=== PATIENT | male | born 1945 | race Caucasian/White ===

== ENCOUNTER → 2017-09-07 | Outpatient (CLI) | payer MEDICARE, BC ==
--- NOTE | 2017-09-07 10:08 | RADIOLOGY REPORT (SQ) ---
EXAM DESCRIPTION: CHEST PA/LATERAL COMPLETED DATE/TIME: 09/07/2017 9:27 am REASON FOR STUDY: ESSENTIAL (PRIMARY) HYPERTENSION COMPARISON: Two-view chest 07/18/2013 EXAM PARAMETERS: NUMBER OF VIEWS: two views TECHNIQUE: Digital Frontal and Lateral radiographic views of the chest acquired. RADIATION DOSE: NA LIMITATIONS: none FINDINGS: LUNGS AND PLEURA: No opacities, masses or pneumothorax. No pleural effusion. MEDIASTINUM AND HILAR STRUCTURES: No masses or contour abnormalities. HEART AND VASCULAR STRUCTURES: Heart normal size. No evidence for failure. BONES: No acute findings. HARDWARE: Since the prior study from 2013, patient has had distal thoracic spine neurostimulator elec trodes placed. Lower cervical fusion hardware. OTHER: No other significant finding. IMPRESSION: NO SIGNIFICANT RADIOGRAPHIC FINDING IN THE CHEST. TECHNICAL DOCUMENTATION: JOB ID: [id number] [employer]- All Rights Reserved Reading location - IP/workstation name: [email or web address]
[2017-09-07 10:09] LABS: HEMATOCRIT 36.4 % (37.9-51.0); HEMOGLOBIN 12.5 g/dL (13.5-17.0); MEAN CORPUSCULAR HEMOGLOBIN 28.5 pg (27.0-33.4); MEAN CORPUSCULAR HGB CONC 34.5 g/dL (32.0-36.0); MEAN CORPUSCULAR VOLUME 83 fl (80-97); PLATELET COUNT 234 10^3/uL (150-450); RED CELL DISTRIBUTION WIDTH 14.8 % (11.5-14.0); WHITE BLOOD COUNT 4.6 10^3/uL (4.0-10.5)
[2017-09-07 10:30] LABS: ANION GAP 9 (5-19); BLOOD UREA NITROGEN 18 mg/dL (7-20); CALCIUM 9.6 mg/dL (8.4-10.2); CARBON DIOXIDE 31 mmol/L (22-30); CHLORIDE 103 mmol/L (98-107); GLUCOSE 115 mg/dL (75-110); POTASSIUM 4.3 mmol/L (3.6-5.0); SODIUM 143.1 mmol/L (137-145)
--- NOTE | 2017-09-07 23:31 | EKG REPORT ---
SEVERITY:- NORMAL ECG - SINUS RHYTHM : Confirmed by: Shaylee Sadler 07-Sep-2017 23:30:44
== END ==
LOC: OD 08:55
PROVIDERS: ATTEND Orthopaedic Surgery
DX: I10 Essential (primary) hypertension (principal); M51.16 Intervertebral disc disorders with radiculopathy, lumbar region
CPT/HCPCS: 36415; 71046; 80048; 85027; 87070; 93005; 93010

== ENCOUNTER → 2017-10-19 | Outpatient (CLI) | payer MEDICARE, BC | LOC: LAB 13:05 | PROVIDERS: ATTEND Physician Assistant Medical | DX: T81.4XXD Infection following a procedure, subsequent encounter (principal) | CPT/HCPCS: 87040 ==

== ENCOUNTER 2017-11-09 08:06 | Day surgery (SDC) | payer MEDICARE, BC ==
[2017-11-09 08:53] LABS: PROTHROMBIN TIME 12.6 SEC (11.4-15.4)
[2017-11-09 08:54] LABS: PARTIAL THROMBOPLASTIN TIME 35.1 SEC (23.5-35.8)
[2017-11-09] MEDS ORDERED: LIDOCAINE 1% INJ-PF (10 MG/ML) 30 ML SDV ONE (09:22)
--- NOTE | 2017-11-09 11:13 | RADIOLOGY REPORT (SQ) ---
EXAM DESCRIPTION: MYELOGRAM LUMBAR COMPLETED DATE/TIME: 11/09/2017 10:32 am REASON FOR STUDY: INTERVERTEBRAL DISC DISORDERS W/ RADICULOPATHY, LUMBAR REGION M51.16 INTERVERTEBR AL DISC DISORDERS W RADICULOPATHY, LUMBAR Z79.01 [employer] (CURRENT) USE OF ANTICOAGULANTS COMPARISON: None. FLUOROSCOPY TIME: 1.09 minute. 18 images saved to PACS. TECHNIQUE: Fluoroscopic guided lumbar myelogram. LIMITATIONS: None. PROCEDURE: After written consent and assessment were obtained, the patient was brought into the fluo roscopy room and placed prone on the table. The patient's lower back was prepped in a sterile fashio n and an entry site was selected under live fluoroscopic guidance. The entry site was anesthetized wi th 1% lidocaine. The spinal needle was advanced through the skin and into the thecal sac at the leve l of L2-L3. Contrast was injected into the thecal sac. Following the procedure the needle was remov ed and a sterile bandage was placed of the site. CONTRAST: 12 mL Isovue 200. IMAGES ACQUIRED: 18 images. FINDINGS: Contrast is present in the thecal sac. There is S-shaped scoliosis. There is multilevel degenerative disc disease with disc space narrowing and osteophytes. On the lateral images there is no abnormal motion with flexion or extension. IMPRESSION: LUMBAR MYELOGRAM PERFORMED FOR CT MYELOGRAPHY. PLEASE REFER TO THE REPORT OF THE CT MYE LOGRAM FOR DETAILED DIAGNOSTIC EVALUATION. COMMENT: Patient medication list reviewed: Yes- Quality ID# [id number]:Eligible professional attests to doc umenting in the medical record they obtained, updated, or reviewed the patient's current medications. . Quality ID 145: Final reports for procedures using fluoroscopy that document radiation exposure sarah dary, or exposure time and number of fluorographic images (if radiation exposure indices are not avail able) TECHNICAL DOCUMENTATION: JOB ID: [id number] [employer]- All Rights Reserved Reading location - IP/workstation name: [email or web address]
--- NOTE | 2017-11-09 11:21 | RADIOLOGY REPORT (SQ) ---
EXAM DESCRIPTION: CT LUMBAR SPINE WITH COMPLETED DATE/TIME: 11/09/2017 10:42 am REASON FOR STUDY: INTERVERTEBRAL DISC DISORDERS W/ RADICULOPATHY, LUMBAR REGION M51.16 INTERVERTEBR AL DISC DISORDERS W RADICULOPATHY, LUMBAR Z79.01 HALF-WAY (CURRENT) USE OF ANTICOAGULANTS COMPARISON: None. TECHNIQUE: After performing lumbar myelogram, axial images were acquired through the lumbar spine wi thout intravenous contrast. Images reviewed with lung, soft tissue and bone windows. Reconstructed coronal and sagittal MPR images reviewed. All images stored on PACS. All CT scanners at this facility use dose modulation, iterative reconstruction, and/or weight based d osing when appropriate to reduce radiation dose to as low as reasonably achievable (ALARA). [facility]: Dose Right [facility]: CareDose [facility]: Dose Right [facility]: Teradose 4D [facility]: Smart [employer] RADIATION DOSE: CT Rad equipment meets quality standard of care and radiation dose reduction techniq ues were employed. CTDIvol: 15.7 mGy. DLP: 442 mGy-cm. mGy. LIMITATIONS: None. FINDINGS: SEGMENTATION: Normal. No transitional anatomy. ALIGNMENT: S-shaped scoliosis. VERTEBRAL BODIES: No fractures. No dislocation. No acute findings. HARDWARE: Spinal stimulator electrodes. DISCS: Multilevel disc space narrowing with endplate sclerosis, vacuum change, and osteophytes. L1-L2: Mild diffuse posterior annular disc bulge. No focal protrusions. No significant stenosis. L2-L3: Diffuse posterior disc bulge with osteophytes. No focal protrusions. No significant stenosis . L3-L4: Diffuse posterior disc bulge with osteophytes. No focal protrusions. Bilateral facet arthrop athy. Ligamentum flavum thickening. Mild spinal stenosis. L4-L5: Diffuse posterior disc bulge with osteophytes. No focal protrusions. Facet arthropathy with ligamentum flavum thickening. Moderate to severe spinal stenosis. On axial image 64 there is impres nuris upon the posterior right side of the thecal sac. This is at the level of the facet joint and co uld be due to focal thickening of the ligamentum flavum or a ganglion cyst arising from the facet. L5-S1: No significant protrusions. Mild facet arthropathy. No significant stenosis. PEDICLES, TRANSVERSE PROCESSES: No fractures. No dislocation. No acute findings. FACETS, POSTERIOR ELEMENTS: Multilevel facet arthropathy. No fractures. No dislocation. No spinal stenosis. VISUALIZED RIBS: No fractures. SOFT TISSUES: No significant or acute finding in adjacent soft tissues. OTHER: No other significant finding. IMPRESSION: S-SHAPED SCOLIOSIS. MULTILEVEL DEGENERATIVE DISC DISEASE AND FACET ARTHROPATHY DESCR IBED ABOVE. FINDINGS ARE MOST PRONOUNCED AT L4-L5 WITH SPINAL STENOSIS. IMPRESSION ON THE POSTERIOR RIGHT SIDE OF THE THECAL SAC MAY BE DUE TO FOCAL THICKENING OF THE LIGAMENTUM FLAVUM OR POSSIBLY A G ANGLION CYST ARISING FROM THE RIGHT FACET JOINT. COMMENT: Patient medication list reviewed: Yes- Quality ID# [id number]:Eligible professional attests to doc umenting in the medical record they obtained, updated, or reviewed the patient's current medications. TECHNICAL DOCUMENTATION: JOB ID: [id number] Quality ID # 436: Final reports with documentation of one or more dose reduction techniques (e.g., Au tomated exposure control, adjustment of the mA and/or kV according to patient size, use of iterative reconstruction technique) 2010 [employer]- All Rights Reserved Reading location - IP/workstation name: [email or web address]
[2017-11-09 12:37] VITALS: BP 160/95
== END 2017-11-09 12:30 | disposition home or self-care (01) ==
LOC: RAD 08:06
PROVIDERS: ATTEND Orthopaedic Surgery
DX: M51.16 Intervertebral disc disorders with radiculopathy, lumbar region (principal); M51.36 Other intervertebral disc degeneration, lumbar region; M54.5 Low back pain; M48.061 Spinal stenosis, lumbar region without neurogenic claudication; E78.00 Pure hypercholesterolemia, unspecified; I10 Essential (primary) hypertension; K58.9 Irritable bowel syndrome, unspecified; Z79.1 Long term (current) use of non-steroidal anti-inflammatories (NSAID); Z79.899 Other long term (current) drug therapy; Z85.46 Personal history of malignant neoplasm of prostate; Z86.14 Personal history of Methicillin resistant Staphylococcus aureus infection; Z79.01 Long term (current) use of anticoagulants
CPT/HCPCS: 36415; 85610; 85730; 72265; 72132; J3490

== ENCOUNTER → 2018-02-22 | Day surgery (SDC) | payer MEDICARE, BC ==
[2018-02-22 08:48] VITALS: BP 98/57
[2018-02-22 09:03] LABS: INTERNATIONAL RATION (INR) 0.93; PROTHROMBIN TIME 12.9 SEC (11.4-15.4)
[2018-02-22 09:04] LABS: PARTIAL THROMBOPLASTIN TIME 33.5 SEC (23.5-35.8)
== END ==
LOC: RAD 08:24
PROVIDERS: ATTEND Neurological Surgery
DX: M47.12 Other spondylosis with myelopathy, cervical region (principal); Z53.9 Procedure and treatment not carried out, unspecified reason
CPT/HCPCS: 36415; 85610; 85730

== ENCOUNTER 2018-02-28 07:52 | Day surgery (SDC) | payer MEDICARE, BC ==
--- NOTE | 2018-02-28 13:43 | RADIOLOGY REPORT (SQ) ---
EXAM DESCRIPTION: MYELOGRAM CERVICAL COMPLETED DATE/TIME: 02/28/2018 11:18 am REASON FOR STUDY: SPONDYLOSIS WITH MYELOPATHY, CERVICAL REGION M47.12 OTHER SPONDYLOSIS WITH MYELOP ATHY, CERVICAL REGION COMPARISON: None. FLUOROSCOPY TIME: 1.57 minutes. 9 images saved to PACS. TECHNIQUE: Fluoroscopic guided cervical myelogram. LIMITATIONS: None. PROCEDURE: After written consent and assessment were obtained, the patient was brought into the fluo roscopy room and placed prone on the table. The patient's lower back was prepped in a sterile fashio n and an entry site was selected under live fluoroscopic guidance. The entry site was anesthetized wi th 1% lidocaine. The spinal needle was advanced through the skin and into the thecal sac at the leve l of L2-L3. Contrast was injected into the thecal sac. Following the procedure the needle was remov ed and a sterile bandage was placed of the site. CONTRAST: 9 mL Omnipaque 300. IMAGES ACQUIRED: 9 images. FINDINGS: Contrast is present in the thecal sac. IMPRESSION: CERVICAL MYELOGRAM PERFORMED FOR CT MYELOGRAPHY. PLEASE REFER TO THE REPORT OF THE CT M YELOGRAM FOR DETAILED DIAGNOSTIC EVALUATION. COMMENT: Patient medication list reviewed: Yes- Quality ID# 130:Eligible professional attests to doc umenting in the medical record they obtained, updated, or reviewed the patient's current medications. . Quality ID 145: Final reports for procedures using fluoroscopy that document radiation exposure sarah dary, or exposure time and number of fluorographic images (if radiation exposure indices are not avail able) TECHNICAL DOCUMENTATION: JOB ID: [id number] [employer]- All Rights Reserved Reading location - IP/workstation name: [email or web address]
--- NOTE | 2018-02-28 13:52 | RADIOLOGY REPORT (SQ) ---
EXAM DESCRIPTION: CT CERVICAL SPINE WITH COMPLETED DATE/TIME: 02/28/2018 12:49 pm REASON FOR STUDY: SPONDYLOSIS WITH MYELOPATHY, CERVICAL REGION M47.12 OTHER SPONDYLOSIS WITH MYELOP ATHY, CERVICAL REGION COMPARISON: None. TECHNIQUE: Axial images acquired through the cervical spine without intravenous contrast. Images re viewed with lung, soft tissue and bone windows. Reconstructed coronal and sagittal MPR images review ed. Images stored on PACS. All CT scanners at this facility use dose modulation, iterative reconstruction, and/or weight based d osing when appropriate to reduce radiation dose to as low as reasonably achievable (ALARA). [facility]: Dose Right [facility]: CareDose [facility]: Dose Right [facility]: Teradose 4D [facility]: Smart [employer] RADIATION DOSE: CT Rad equipment meets quality standard of care and radiation dose reduction techniq ues were employed. CTDIvol: 17.0 mGy. DLP: 427 mGy-cm. mGy. LIMITATIONS: None. FINDINGS: ALIGNMENT: 2 mm anterolisthesis of C2 on C3. MINERALIZATION: Normal. VERTEBRAL BODIES: No fractures or dislocation. DISCS: C1-C2: No significant spinal stenosis or exit foraminal stenosis. C2-C3: Mild facet arthropathy and uncovertebral spurring. No significant spinal stenosis or exit for aminal stenosis. C3-C4: Facet arthropathy and uncovertebral spurring. No significant spinal stenosis. Bilateral exit foraminal stenosis, worse on the right. C4-C5: Facet arthropathy and uncovertebral spurring. No significant spinal stenosis. Bilateral exit foraminal stenosis, worse on the right. C5-C6: Prominent right paracentral posterior osteophyte resulting in moderate spinal stenosis and imp ingement on the right side of the cord. Uncovertebral spurring and facet arthropathy with mild exit foraminal stenosis. C6-C7: No significant spinal stenosis or exit foraminal stenosis. C7-T1: No significant spinal stenosis or exit foraminal stenosis. FACETS, LATERAL MASSES, POSTERIOR ELEMENTS: No fractures. No dislocation. No acute findings. HARDWARE: Multilevel disc fusion and anterior hardware extending from C3-C7. VISUALIZED RIBS: No fractures. LUNG APICES AND SOFT TISSUES: No significant or acute findings. OTHER: No other significant finding. IMPRESSION: MULTILEVEL FUSION AND HARDWARE DESCRIBED. 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 MOST PRONOUNCED FINDING IS AT C5-C6 WITH PROMINENT RIGHT PARACENTRAL POSTERIOR OSTEOPHYTE RESULTING IN MODERATE SPINAL STENOSIS AND IMPINGEMENT ON THE RIGHT SIDE OF THE CORD. FACET ARTHROPATHY AND UNC OVERTEBRAL SPURRING AT MULTIPLE LEVELS RESULTING IN EXIT FORAMINAL STENOSIS DESCRIBED. TECHNICAL DOCUMENTATION: JOB ID: [id number] Quality ID # 436: Final reports with documentation of one or more dose reduction techniques (e.g., Au tomated exposure control, adjustment of the mA and/or kV according to patient size, use of iterative reconstruction technique) 2010 [employer]- All Rights Reserved Reading location - IP/workstation name: [facility]
[2018-02-28 14:47] VITALS: BP 122/79
== END 2018-02-28 13:30 | disposition home or self-care (01) ==
LOC: RAD 07:52
PROVIDERS: ATTEND Neurological Surgery
DX: M47.12 Other spondylosis with myelopathy, cervical region (principal); M54.2 Cervicalgia; M54.5 Low back pain
CPT/HCPCS: 72126; 72240

== ENCOUNTER 2018-05-02 07:47 | Day surgery (SDC) | payer MEDICARE, BC ==
[2018-05-02 08:36] LABS: PROTHROMBIN TIME 12.6 SEC (11.4-15.4)
[2018-05-02 08:37] LABS: PARTIAL THROMBOPLASTIN TIME 35.6 SEC (23.5-35.8)
--- NOTE | 2018-05-02 10:54 | RADIOLOGY REPORT (SQ) ---
EXAM DESCRIPTION: CT HEAD WITHOUT COMPLETED DATE/TIME: 05/02/2018 10:43 am REASON FOR STUDY: OTHER SYMPTOMS AND SIGNS INVOLVING THE MUSCOLOSKELETAL SYSTEM M47.26 OTHER SPONDY LOSIS WITH RADICULOPATHY, LUMBAR REGION R29.898 OT SYMPTOMS AND SIGNS INVOLVING THE MUSCULOSKELETAL Z79.01 CARE HOME (CURRENT) USE OF ANTICOAGULANTS COMPARISON: None. TECHNIQUE: Axial images acquired through the brain without intravenous contrast. Images reviewed wi th bone, brain and subdural windows. Additional sagittal and coronal reconstructions were generated. Images stored on PACS. All CT scanners at this facility use dose modulation, iterative reconstruction, and/or weight based d osing when appropriate to reduce radiation dose to as low as reasonably achievable (ALARA). [facility]: Dose Right [facility]: CareDose [facility]: Dose Right [facility]: Teradose 4D [facility]: [employer] RADIATION DOSE: CT Rad equipment meets quality standard of care and radiation dose reduction techniq ues were employed. CTDIvol: 48.6 mGy. DLP: 880 mGy-cm. mGy. LIMITATIONS: None. FINDINGS: VENTRICLES: Normal size and contour. CEREBRUM: No masses. No hemorrhage. No midline shift. No evidence for acute infarction. Normal gra y/white matter differentiation. Minimal chronic bifrontal deep periventricular white matter disease. CEREBELLUM: No masses. No hemorrhage. No alteration of density. No evidence for acute infarction. EXTRAAXIAL SPACES: No fluid collections. No masses. ORBITS AND GLOBE: No intra- or extraconal masses. Normal contour of globe without masses. CALVARIUM: No fracture. PARANASAL SINUSES: No fluid or mucosal thickening. SOFT TISSUES: No mass or hematoma. OTHER: No other significant finding. IMPRESSION: No acute findings. Age-appropriate frontal white matter disease EVIDENCE OF ACUTE STROKE: NO. COMMENT: Quality ID # 436: Final reports with documentation of one or more dose reduction techniques (e.g., Automated exposure control, adjustment of the mA and/or kV according to patient size, use of iterative reconstruction technique) TECHNICAL DOCUMENTATION: JOB ID: [id number] [employer]- All Rights Reserved Reading location - IP/workstation name: [facility]
[2018-05-02] MEDS ORDERED: HYDROCODONE/ACETAMINOPHEN 5-325 MG TABLET ONE (11:34)
[2018-05-02] MEDS ORDERED: HYDROCODONE/ACETAMINOPHEN 10-325 MG TABLET ONE (11:50)
[2018-05-02 13:05] VITALS: BP 144/83
--- NOTE | 2018-05-02 16:18 | RADIOLOGY REPORT (SQ) ---
EXAM DESCRIPTION: MYELOGRAM THORACIC; CT THORACIC SPINE WITH COMPLETED DATE/TIME: 05/02/2018 11:23 am; 05/02/2018 11:35 am REASON FOR STUDY: OTHER SPONDYLOSIS WITH RADICULOPATHY, LUMBAR REGION; OTHER SPONDYLOSIS [facility] RADICUL OPATHY, LUMBAR REGION M47.26 OTHER SPONDYLOSIS WITH RADICULOPATHY, LUMBAR REGION R29.898 OT SYMPTO MS AND SIGNS INVOLVING THE MUSCULOSKELETAL Z79.01 DETENTION (CURRENT) USE OF ANTICOAGULANTS COMPARISON: Cervical myelogram and postmyelogram CT 02/28/2018 Lumbar spine myelogram and postmyelogram CT 11/09/2017 FLUOROSCOPY TIME: 1 minutes 52 seconds 22 fluoroscopic postmyelogram images saved to PACS. TECHNIQUE: Fluoroscopic guided thoracic myelogram. Postmyelogram CT of the thoracic spine with sagittal and coronal reconstructions LIMITATIONS: None. PROCEDURE: After written consent and assessment were obtained, the patient was brought into the fluo roscopy room and placed prone on the table. The patient's lower back was prepped in a sterile fashio n and an entry site was selected under live fluoroscopic guidance. The entry site was anesthetized wi th 3 mL of 1% lidocaine. The spinal needle was advanced through the skin and into the thecal sac at the left paracentral T12-L1 level. Contrast was injected into the thecal sac. Following the procedu re the needle was removed and a sterile bandage was placed of the site. No immediate postprocedure c omplications. CONTRAST: 10 mL Isovue M 200. IMAGES ACQUIRED: Fluoroscopic images were obtained including prone oblique and supine cross-table lat eral imaging. Postmyelogram CT was performed, axial acquisition with sagittal and coronal reconstructions, reviewed at lung bone and soft tissue windows. FINDINGS: At fluoroscopy, spot films over the thoracic spine were limited diagnostic quality due to contrast dilution in the CSF, and superimposed artifact from thoracic spine neurostimulator electrode s. No myelographic block was encountered in the thoracic canal. Postmyelogram CT demonstrates fusion hardware at C5-6 and C6-7 at the upper edge of the field of view incompletely included in the study. Upper thoracic canal has limited intrathecal contrast down to the T4-5 level. From T4-5 through T8-9, no central or foraminal stenosis is present. From the T8-9 disc level through the mid T11 level, there is artifact from dorsal column stimulator e lectrodes causing streak artifact. Electrodes are to the left of midline. These causes partial effa cement of the thecal sac around the thoracic cord, electrodes abut the posterior leftward aspect of t he thoracic cord from the T8-9 disc level down to the mid T11 level. At T8-9, borderline central can al narrowing results from minimal mass effect from the neurostimulator electrodes in the posterior le ftward canal. No significant T8-9 foraminal stenosis. At T9-10, no significant foraminal narrowing is present. Mild central canal narrowing is present. At T10-11, there is broad diffuse posterior disc bulging and bony spurring. This finding along with dorsal column electrodes causes moderate central canal narrowing, mild cord flattening and effacement of the CSF around the distal thoracic cord. High-grade right, moderate left foraminal narrowing at T10-11. At T11-12, borderline central canal stenosis results from mild diffuse posterior disc bulge and bony spurring right greater than left, along with dorsal column electrodes. Partial effacement of the CSF around the distal thoracic cord. There is high-grade bilateral foraminal narrowing from foraminal d isc bulging and facet hypertrophy. At T12-L1, minimal posterior disc bulging is present without significant central or foraminal encroac hment. At L1-2, broad diffuse posterior disc bulging and facet and ligament hypertrophy are present without central stenosis. Mild bilateral inferior foraminal narrowing. At L2-3, mild posterior disc bulge and bony spurring is present without significant central canal chris rowing. Minimal bilateral inferior foraminal narrowing. IMPRESSION: Moderate central canal stenosis at T10-11, related to a combination of degenerative disc changes and local mass effect from the electrodes in the spinal canal. COMMENT: Patient medication list reviewed: Yes- Quality ID# 130:Eligible professional attests to doc umenting in the medical record they obtained, updated, or reviewed the patient's current medications. . Quality ID 145: Final reports for procedures using fluoroscopy that document radiation exposure sarah dary, or exposure time and number of fluorographic images (if radiation exposure indices are not avail able) TECHNICAL DOCUMENTATION: JOB ID: [id number] [employer]- All Rights Reserved Reading location - IP/workstation name: [facility]
== END 2018-05-02 12:45 | disposition home or self-care (01) ==
LOC: RAD 07:47
PROVIDERS: ATTEND Neurological Surgery
DX: M47.26 Other spondylosis with radiculopathy, lumbar region (principal); R29.898 Other symptoms and signs involving the musculoskeletal system; I10 Essential (primary) hypertension; Z79.899 Other long term (current) drug therapy; M19.90 Unspecified osteoarthritis, unspecified site; Z79.01 Long term (current) use of anticoagulants
CPT/HCPCS: 36415; 85610; 85730; 72255; 70450; 72129; A9270

== ENCOUNTER 2019-02-02 07:02 | Day surgery (SDC) | payer MEDICARE, BC ==
[~2019-02-02 07:02] MED LIST: BUPIVACAINE HCL 0.75% INJ/PF (7.5 MG/1 ML) 10 ML SDV OD PRN; LIDOCAINE 4% INJ/PF (40 MG/ML) 5 ML AMPUL OD PRN
[2019-02-02] MEDS ORDERED: CHONDR SU A NA/HYALUR INTRAOC KIT (SURGICARE) ONE (07:07)
[2019-02-02] MEDS ORDERED: LIDOCAINE 1%/PHENYLEPHRINE 1.5% 1 ML VIAL ONE (07:07)
[2019-02-02] MEDS ORDERED: EPINEPHRINE INJ/PF 1 MG/1 ML AMPULE ONE (07:07)
[2019-02-02] MEDS: BESIFLOXACIN HCL 0.6% OPH SUSP 5 ML BOTTLE OD PRN ×4 (07:43→08:43)
[2019-02-02] MEDS: CYCLOPENTOLATE 0.2%/PHENYLEPHRINE 1% OPH SOLN 2 ML OD PRN ×3 (07:43→08:03)
[2019-02-02] MEDS: TROPICAMIDE 1% OPH SOLN 15 ML OD PRN ×3 (07:43→08:03)
[2019-02-02] MEDS: TETRACAINE HCL 0.5% OPH SOLN 4 ML OD PRN ×4 (07:43→08:21)
[2019-02-02] MEDS: KETOROLAC TROMETHAMINE 0.45% 4 DROP/0.4 ML DROPERETTE OD PRN ×2 (07:44→09:33)
[2019-02-02] MEDS ORDERED: MIDAZOLAM 2 MG/2 ML INJ ONE (08:02)
[2019-02-02] MEDS: DORZOLAMIDE HCL 2%/TIMOLOL MALEAT 0.5% OPH SOLN 10 ML OD PRN ×2 (08:43)
--- NOTE | 2019-02-02 18:51 | Operative Report ---
Operative Report-[facility] Operative Report: DATE OF SURGERY: 02/02/2019 PREOPERATIVE DIAGNOSIS: CATARACT, RIGHT EYE. POSTOPERATIVE DIAGNOSIS: CATARACT, RIGHT EYE. PROCEDURE PERFORMED: PHACOEMULSIFICATION WITH POSTERIOR CHAMBER INTRAOCULAR LENS, RIGHT EYE. Intraocular Lens Model : SN 6 0 WF 21.5 Total Phaco Time: 7.85 CDE SURGEON: LETA KHAN MD ANESTHESIA: TOPICAL WITH MAC. INDICATIONS FOR SURGERY: Difficulty golfing and driving at night. PROCEDURE: The patient was brought to the Operating Room and placed on the operative table. Following tetracaine drops, topical anesthesia was administered. This consisted of instrument wipe pledgets soaked in a solution of 4% Xylocaine mixed with 0.75% Marcaine in a 1:2 ratio. A 2 x 1 cm pledget was placed in the superior fornix. A 1 x 1 cm pledget was placed in the inferior fornix. The eye was patched shut for 5 minutes. The patch was removed. The eye was sterilely prepped and draped in the usual manner. Lid speculum was placed in the eye. The pledgets were removed. 4-0 black silk sutures were placed around the superior and the inferior rectus muscles to be used as traction. A conjunctival peritomy was made at the 10 o'clock position. Hemostasis was obtained with bipolar cautery. A posterior limbal groove was created using a crescent knife and dissected anteriorly towards the cornea. A sharp point blade was used to create a paracentesis site at the 2 o'clock position. 0.2 cc non preserved Lidocaine was injected into the anterior chamber. A 2.4 mm keratome was used to enter the a nterior chamber through the groove. Viscoelastic was injected into the anterior chamber. An anterior capsulotomy was performed using Utrata forceps in a capsulorrhexis fashion. Hydrodissection and hydrodelineation were performed. Phacoemulsification was performed in [id number] technique. Following this, the I/A unit was used to remove residual cortex. Viscoelastic was injected into the capsular bag. The Intraocular lens was placed in the capsular bag. The I/A unit was used to remove residual viscoelastic. The wound was seen to be watertight under high and low pressure, and no sutures were placed. The intraocular lens was well centered. The pressure was adjusted in the eye to normal pressure. The 4-0 black silk sutures and lid speculum were removed. The eye was shielded after Besivance and Cosopt drops were placed. The patient tolerated the procedure well and was sent to the Recovery Room in good condition.
== END 2019-02-02 09:51 | disposition home or self-care (01) ==
LOC: SC 07:02
PROVIDERS: ATTEND Ophthalmology
DX: H25.813 Combined forms of age-related cataract, bilateral (principal); H40.033 Anatomical narrow angle, bilateral; I10 Essential (primary) hypertension
CPT/HCPCS: 66984; 00142; J2250; J3490 ×4; A9270; J0171; J2370; 142; V2632